=== PATIENT | female | born 1990 | race Asian ===

== ENCOUNTER 2016-11-02 20:54 | Emergency (ER) | payer OTHER ==
[2016-11-03 00:05] VITALS: BP 106/76
== END 2016-11-03 00:05 | disposition home or self-care (01) ==
LOC: ED 20:54
DX: T78.00XA Anaphylactic reaction due to unspecified food, initial encounter (principal); R42 Dizziness and giddiness; J45.909 Unspecified asthma, uncomplicated; I95.9 Hypotension, unspecified; Y92.89 Other specified places as the place of occurrence of the external cause
CPT/HCPCS: J2930; J3490; J7030